=== PATIENT | female | born 2000 | race Caucasian/White ===

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

== ENCOUNTER 2022-08-06 11:29 | Emergency (ER) | payer BC ==
[2022-08-06 11:59] VITALS: RESP 18
[2022-08-06 12:59] VITALS: TEMP 98.6
--- NOTE | 2022-08-06 13:10 | ED ---
General Adult HPI - General Chief complaint: Chest Pain Stated complaint: SOB, chest pain Time Seen by Provider: 08/06/22 12:10 Source: patient, RN notes reviewed, old records reviewed Mode of arrival: ambulatory Limitations: no limitations - History of Present Illness Initial comments: This is a 21-year-old female presents emergency department stating while she was at work at [employer] she started having some chest tightness and felt like she couldn't take a deep breath. Patient states she has some sharp chest pain up front that lasted 3-4 seconds and it happened a few times. Patient states then she started feeling as though her heart was racing and she was a little bit anxious at that time. Patient states her heart rate is about 140 beats minute per patient states currently there is no heart racing now there is no chest pain now and she does still feel a chest ache deep breath. Patient states the chest pain is reproducible when she presses both sides of her chest. Patient denies any fever chills states she has a dry cough. Patient denies any abdominal pain patient's nausea vomiting diarrhea. - Related Data Previous Rx's Medication Instructions Recorded diphenhydrAMINE [Benadryl] 1 - 2 tab PO Q6HR PRN #30 capsule 02/08/18 methylPREDNISolone Dose Pack 4 mg PO DIRECTED #21 package 02/08/18 [Medrol Dose Pack] Allergies Allergy/AdvReac Type Severity Reaction Status Date / Time No Known Allergies Allergy Verified 08/06/22 11:59 Review of Systems ROS Statement: Those systems with pertinent positive or pertinent negative responses have been documented in the HPI. ROS Other: All systems not noted in ROS Statement are negative. Past Medical History Past Medical History: No Reported History History of Any Multi-Drug Resistant Organisms: None Reported Additional Past Surgical History / Comment(s): lymph node removed from neck Past Psychological History: No Psychological Hx Reported Smoking Status: Never smoker Past Alcohol Use History: None Reported Past Drug Use History: Marijuana General Exam - General Exam Comments Initial Comments: GENERAL: Patient is well-developed and well-nourished. Patient is nontoxic and well- hydrated and is in mild distress. ENT: Neck is soft and supple. No significant lymphadenopathy is noted. Oropharynx is clear. Moist mucous membranes. Neck has full range of motion without eliciting any pain. EYES: The sclera were anicteric and conjunctiva were pink and moist. Extraocular movements were intact and pupils were equal round and reactive to light. Eyelids were unremarkable. PULMONARY: Unlabored respirations. Good breath sounds bilaterally. No audible rales rhonchi or wheezing was noted. CARDIOVASCULAR: There is a regular rate and rhythm without any murmurs gallops or rubs. Chest pain was reproducible on the right and left side. ABDOMEN: Soft and nontender with normal bowel sounds. SKIN: Skin is clear with no lesions or rashes and otherwise unremarkable. NEUROLOGIC: Patient is alert and oriented x3. Cranial nerves II through XII are grossly intact. Motor and sensory are also intact. Normal speech, volume and content. Symmetrical smile. MUSCULOSKELETAL: Normal extremities with adequate strength and full range of motion. LYMPHATICS: No significant lymphadenopathy is noted PSYCHIATRIC: Normal psychiatric evaluation. Limitations: no limitations Course Vital Signs 08/06/22 08/06/22 11:57 12:59 Temperature 97.8 F 98.6 F Pulse Rate 83 89 Respiratory 18 18 Rate Blood Pressure 128/92 127/89 O2 Sat by Pulse 99 97 Oximetry Medical Decision Making - Medical Decision Making Was pt. sent in by a medical professional or institution (, PA, SENIOR PROCESS ANALYST, urgent care, hospital, or correction...) When possible be specific @ -No Did you speak to anyone other than the patient for history (EMS, parent, family, police, friend...)? What history was obtained from this source @ -No Did you review nursing and triage notes (agree or disagree)? Why? @ -I reviewed and agree with nursing and triage notes Were old charts reviewed (outside hosp., previous admission, EMS record, old EKG, old radiological studies, urgent care reports/EKG's, correction records)? Report findings @ -No old charts were reviewed Differential Diagnosis (chest pain, altered mental status, abdominal pain women, abdominal pain men, vaginal bleeding, weakness, fever, dyspnea, syncope, headache, dizziness, GI bleed, back pain, seizure, CVA, palpatations, mental health, musculoskeletal)? @ -Differential Dyspnea: Coronary syndrome, arrhythmia, tamponade, asthma, COPD, pulmonary embolism, pneumonia, pneumothorax, pulmonary effusion, anaphylaxis, diabetic ketoacidosis, flailed chest, pulmonary contusion, diaphragmatic rupture, anemia, neuromuscular, this is not meant to be an all-inclusive list. EKG interpreted by me (3pts min.). @ -EKG shows sinus rhythm at 71 bpm [place] interval 228 QRS 86 QT interval 338 QTC is 361. Patient's EKG shows no ST segment elevation or depression. X-rays interpreted by me (1pt min.). @ -Ray was interpreted by myself I see no acute abnormality CT interpreted by me (1pt min.). @ -None done U/S interpreted by me (1pt. min.). @ -None done What testing was considered but not performed or refused? (CT, X-rays, U/S, labs)? Why? @ -None What meds were considered but not given or refused? Why? @ -None Did you discuss the management of the patient with other professionals (professionals i.e. , PA, SENIOR PROCESS ANALYST, lab, RT, psych nurse, psychologist social, hand cloth cutter, teacher, commercial loan officer, case liner)? Give summary @ -No Was smoking cessation discussed for >3mins.? @ -No Was critical care preformed (if so, how long)? @ -No Were there social determinants of health that impacted care today? How? (Homelessness, low income, unemployed, alcoholism, drug addiction, transportation, low edu. Level, literacy, decrease access to med. care, residential, re hab)? @ -No Was there de-escalation of care discussed even if they declined (Discuss DNR or withdrawal of care, Hospice)? DNR status @ -No What co-morbidities impacted this encounter? (DM, HTN, Smoking, COPD, CAD, Cancer, CVA, ARF, Chemo, Hep., AIDS, mental health diagnosis, sleep apnea, morbid obesity)? @ -None Was patient admitted / discharged? Hospital course, mention meds given and route, prescriptions, significant lab abnormalities, going to OR and other pertinent info. @ -Patient's only experiencing some mild chest tightness at this time she's not having any issues speaking her oxygenation is good her vital signs are good at this time. Patient has no chest pain currently. Undiagnosed new problem with uncertain prognosis? @ -No Drug Therapy requiring intensive monitoring for toxicity (Heparin, Nitro, Insulin, Cardizem)? @ -No Were any procedures done? @ -No Diagnosis/symptom? @ -Palpitations Acute, or Chronic, or Acute on Chronic? @ -Acute Uncomplicated (without systemic symptoms) or Complicated (systemic symptoms)? @ -Uncomplicated Side effects of treatment? @ -No Exacerbation, Progression, or Severe Exacerbation? @ -No Poses a threat to life or bodily function? How? (Chest pain, [place], [place], pneumonia, PE, COPD, DKA, ARF, appy, cholecystitis, CVA, Diverticulitis, Homicidal, Suicidal, threat to staff... and all critical care pts) @ -No Disposition Clinical Impression: Palpitations Disposition: HOME SELF-CARE Condition: Good Instructions (If sedation given, give patient instructions): Heart Palpitations (ED) Additional Instructions: Follow-up with primary medical care doctor or cardiology for a heart monitor Is patient prescribed a controlled substance at d/c from ED?: No Referrals: Renzo Alcala DO [Primary Care Provider] - 1-2 days Time of Disposition: 13:12
--- NOTE | 2022-08-06 13:16 | XR ---
EXAMINATION TYPE: XR chest 2V DATE OF EXAM: 08/06/2022 COMPARISON: Chest x-ray 2003 HISTORY: Difficulty in breathing. TECHNIQUE: Frontal and lateral views of the chest are obtained. FINDINGS: There is no focal air space opacity, pleural effusion, or pneumothorax seen. The cardiac silhouette size is within normal limits. The osseous structures are intact. IMPRESSION: No acute process.
[2022-08-06 13:31] VITALS: BP 129/81; PULSE 87
== END 2022-08-06 13:31 | disposition home or self-care (01) ==
LOC: EC 11:29
DX: R00.2 Palpitations (principal); F12.90 Cannabis use, unspecified, uncomplicated
CPT/HCPCS: 71046; 93005; 99285

== ENCOUNTER 2022-10-17 11:32 | Emergency (ER) | payer BC ==
[2022-10-17 11:42] VITALS: RESP 18
[2022-10-17] MEDS ORDERED: KETOROLAC 15 MG/ML 1 ML VIAL IM STA (12:11)
--- NOTE | 2022-10-17 12:24 | ED ---
Lower Extremity Injury HPI - General Chief Complaint: Extremity Injury, Lower Stated Complaint: Right Knee Pain Time Seen by Provider: 10/17/22 11:50 Source: patient, RN notes reviewed Mode of arrival: ambulatory Limitations: no limitations - History of Present Illness Initial Comments: Patient is a pleasant 21-year-old female presenting to the emergency room with complaints of right knee pain and limited range of motion with difficulty ambulating. She reports that she stepped out of bed today and heard a popping sensation and since that time she has not been able to fully extend her leg and has severe pain with attempts of bearing weight. She denies any recent injury but does state approximately 2 months ago while dancing she tripped and fell landing on her right knee. She was not evaluated after that injury. She denies any point tenderness, swelling or wounds. She reports that the joint itself is not tender to the touch and only begins to hurt with range of motion. She denies any other complaints or concerns including any numbness, tingling or weakness. She has no significant past medical history. - Related Data Previous Rx's Medication Instructions Recorded diphenhydrAMINE [Benadryl] 1 - 2 tab PO Q6HR PRN #30 capsule 02/08/18 methylPREDNISolone Dose Pack 4 mg PO DIRECTED #21 package 02/08/18 [Medrol Dose Pack] Ibuprofen [Motrin] 800 mg PO Q8H PRN 7 Days #21 tab 10/17/22 Allergies Allergy/AdvReac Type Severity Reaction Status Date / Time No Known Allergies Allergy Verified 10/17/22 11:38 Review of Systems ROS Statement: Those systems with pertinent positive or pertinent negative responses have been documented in the HPI. ROS Other: All systems not noted in ROS Statement are negative. Past Medical History Past Medical History: No Reported History History of Any Multi-Drug Resistant Organisms: None Reported Additional Past Surgical History / Comment(s): lymph node removed from neck Past Psychological History: Anxiety Smoking Status: Never smoker Past Alcohol Use History: None Reported Past Drug Use History: Marijuana General Exam Limitations: no limitations General appearance: alert, in no apparent distress Head exam: Present: atraumatic, normocephalic, normal inspection Eye exam: Present: normal appearance, PERRL, EOMI. Absent: scleral icterus, conjunctival injection, periorbital swelling ENT exam: Present: normal exam, mucous membranes moist Neck exam: Present: normal inspection, full ROM Respiratory exam: Absent: respiratory distress, accessory muscle use Cardiovascular Exam: Present: regular rate GI/Abdominal exam: Present: soft. Absent: distended, tenderness, guarding, rebound, rigid Right Knee exam: Present: tenderness. Absent: full ROM, swelling, abrasion, lacerat ion, ecchymosis, deformity, crepitus, dislocation, erythema, effusion, full knee extension Neurovascular tendon exam: Present: no vascular compromise Gait: observed and limited by pain Back exam: Present: normal inspection Neurological exam: Present: alert, oriented X3, CN II-XII intact Psychiatric exam: Present: normal affect, normal mood Skin exam: Present: warm, dry, intact, normal color. Absent: rash Course Vital Signs 10/17/22 11:39 Temperature 98 F Pulse Rate 83 Respiratory 18 Rate Blood Pressure 124/78 O2 Sat by Pulse 97 Oximetry Medical Decision Making - Medical Decision Making Was pt. sent in by a medical professional or institution (, PA, CERTIFIED PERFORMANCE TECHNOLOGIST, urgent care, hospital, or halfway...) When possible be specific @ -No Did you speak to anyone other than the patient for history (EMS, parent, family, police, friend...)? What history was obtained from this source @ -No Did you review nursing and triage notes (agree or disagree)? Why? @ -I reviewed and agree with nursing and triage notes Were old charts reviewed (outside hosp., previous admission, EMS record, old EKG, old radiological studies, urgent care reports/EKG's, halfway records)? Report findings @ -No old charts were reviewed Differential Diagnosis (chest pain, altered mental status, abdominal pain women, abdominal pain men, vaginal bleeding, weakness, fever, dyspnea, syncope, headache, dizziness, GI bleed, back pain, seizure, CVA, palpatations, mental health, musculoskeletal)? @ -Differential Musculoskeletal Muscular strain, contusion, ligament sprain, fracture, arthritis, septic arthritis, bursitis, cellulitis, muscle spasm, nerve compression, DVT, arterial occlusion, herpes zoster, electrolyte abnormality, tumor.... This is not meant to be in all inclusive list EKG interpreted by me (3pts min.). @ -None done X-rays interpreted by me (1pt min.). @ -X-ray right knee: No fracture, dislocation or soft tissue swelling/effusion CT interpreted by me (1pt min.). @ -None done U/S interpreted by me (1pt. min.). @ -None done What testing was considered but not performed or refused? (CT, X-rays, U/S, labs)? Why? @ -None What meds were considered but not given or refused? Why? @ -None Did you discuss the management of the patient with other professionals (professionals i.e. DrNory, PA, CERTIFIED PERFORMANCE TECHNOLOGIST, lab, RT, psych nurse, bilingual social worker, pathology laboratory director, teacher, youth officer, director of casework)? Give summary @ -No Was smoking cessation discussed for >3mins.? @ -No Was critical care preformed (if so, how long)? @ -No Were there social determinants of health that impacted care today? How? (Homelessness, low income, unemployed, alcoholism, drug addiction, transportation, low edu. Level, literacy, decrease access to med. care, long term, rehab)? @ -No Was there de-escalation of care discussed even if they declined (Discuss DNR or withdrawal of care, Hospice)? DNR status @ -No What co-morbidities impacted this encounter? (DM, HTN, Smoking, COPD, CAD, Cancer, CVA, ARF, Chemo, Hep., AIDS, mental health diagnosis, sleep apnea, morbid obesity)? @ -None Was patient admitted / discharged? Hospital course, mention meds given and route, prescriptions, significant lab abnormalities, going to OR and other pertinent info. @ -Will give Toradol for pain and obtain x-ray of the right knee. No recent trauma however injury approximately 2 months ago with fall and pain to the patella with problems with range of motion and popping since that time. No examination after fall. X-ray negative for acute process. Pain improved with Toradol. Patient concerned regarding difficulty ambulating and with like assistive devices will provide with crutches and keep off work for 48 hours. Encouraged range of motion and weightbearing as tolerated. Will give ibuprofen for pain as needed advising not to take other NSAIDs with medication. Encouraged follow-up with orthopedist for further evaluation of right knee pain. Will discharge home in stable condition with crutches and prescription for ibuprofen to use for right knee pain as needed recommending follow-up with [facility]. Undiagnosed new problem with uncertain prognosis? @ -No Drug Therapy requiring intensive monitoring for toxicity (Heparin, Nitro, Insulin, Cardizem)? @ -No Were any procedures done? @ -No Diagnosis/symptom? @ -Right knee pain Acute, or Chronic, or Acute on Chronic? @ -Acute Uncomplicated (without systemic symptoms) or Complicated (systemic symptoms)? @ -Uncomplicated Side effects of treatment? @ -No Exacerbation, Progression, or Severe Exacerbation? @ -No Poses a threat to life or bodily function? How? (Chest pain, [place], [place], pneumonia, PE, COPD, DKA, ARF, appy, cholecystitis, CVA, Diverticulitis, Homicidal, Suicidal, threat to staff... and all critical care pts) @ -No Case discussed with Dr. Muller. - Radiology Data Radiology results: report reviewed, image reviewed Disposition Clinical Impression: Knee pain, right Disposition: HOME SELF-CARE Instructions (If sedation given, give patient instructions): Knee Pain (ED) Additional Instructions: Utilize Motrin for pain as needed, do not take other NSAIDs such as Aleve while taking Motrin. Ice joint in 20 minute increments as needed. Gentle range of motion encouraged. Weightbearing as tolerated encouraged. Please follow-up with orthopedist and your primary care provider. Please return to the Emergency Department if symptoms worsen or any other concerns. Prescriptions: Ibuprofen [Motrin] 800 mg PO Q8H PRN 7 Days #21 tab PRN Reason: Pain Is patient prescribed a controlled substance at d/c from ED?: No Referrals: Angelito James MD [Primary Care Provider] - 1-2 days Zack Marsh MD [Medical Doctor] - 1-2 days Time of Disposition: 13:23
--- NOTE | 2022-10-17 12:33 | XR ---
EXAMINATION TYPE: XR knee complete RT DATE OF EXAM: 10/17/2022 COMPARISON: Right knee radiograph 09/23/2015 HISTORY: Pain TECHNIQUE: Frontal, lateral and oblique images of the right knee are obtained. FINDINGS: There is no acute fracture/dislocation evident. The joint spaces appear within normal scales its. The overlying soft tissue appears unremarkable. Incidental fabella. IMPRESSION: There is no acute fracture or dislocation seen.
[2022-10-17 13:37] VITALS: BP 118/74; PULSE 78; TEMP 98.2
== END 2022-10-17 13:37 | disposition home or self-care (01) ==
LOC: EC 11:32
DX: M25.561 Pain in right knee (principal); F41.9 Anxiety disorder, unspecified; F12.90 Cannabis use, unspecified, uncomplicated; X50.9XXA Other and unspecified overexertion or strenuous movements or postures, initial encounter
CPT/HCPCS: 73562; 99283; 96372; J1885

== ENCOUNTER 2024-01-29 08:14 | Outpatient (CLI) | payer BC, OTHER ==
[2024-01-29] MEDS: LACTATED RINGERS 1,000 ML IV ONE (09:00)
[2024-01-29 09:11] LABS: Amorphous Sediment,Urine Moderate /hpf; Appearance,Urine Turbid (Clear); Bacteria,Urine Rare /hpf; Bilirubin,Urine Negative (Negative); Blood,Urine Negative (Negative); Color,Urine Colorless; Glucose,Urine (UA) Negative (Negative); Ketones,Urine Negative (Negative); Leukocyte Esterase,Urine Moderate (Negative); Mucus,Urine Rare /hpf; Nitrite,Urine Negative (Negative); PH, Urine 7.5 (5.0-8.0); Protein,Urine Trace (Negative); RBC,Urine 3 /hpf (0-5); Specific Gravity,Urine 1.019 (1.001-1.035); Squamous Epithelial Cell,Urine 63 /hpf (0-4); Urobilinogen,Urine <2.0 mg/dL (<2.0); WBC,Urine 5 /hpf (0-5)
[2024-01-29 09:23] LABS: Basophils % (A) 0 %; Eosinophils # (A) 0.1 k/uL (0-0.7); Eosinophils % (A) 2 %; HCT 35.9 % (34.0-46.0); HGB 12.4 gm/dL (11.4-16.0); Lymphocytes % (A) 15 %; MCH 31.2 pg (25.0-35.0); MCHC 34.5 g/dL (31.0-37.0); MCV 90.4 fL (80.0-100.0); Mean Platelet Volume 8.2; Monocytes # (A) 0.2 k/uL (0-1.0); Monocytes % (A) 4 %; Neutrophils # (A) 5.1 k/uL (1.3-7.7); Neutrophils % (A) 78 %; Platelet Count 277 k/uL (150-450); RBC 3.97 m/uL (3.80-5.40); RDW 12.2 % (11.5-15.5); WBC 6.5 k/uL (3.8-10.6)
[2024-01-29] MEDS: ACETAMINOPHEN IV (For NPO) 1,000 MG in EMPTY BAG 1 BAG IVPB STA (09:36)
[2024-01-29 09:55] LABS: African American GFR (CKD) >90 (>60 ml/min/1.73 sqM); Blood Urea Nitrogen 6 mg/dL (7-17); Non-African American GFR(CKD) >90 (>60 ml/min/1.73 sqM)
[2024-01-29 11:13] VITALS: BP 126/79; PULSE 102; RESP 17; TEMP 97.9
--- NOTE | 2024-02-08 18:59 | P.MSEPDOC ---
Presenting Problems - Arrival Data Date of Arrival on Unit: 01/29/24 Time of Arrival on Unit: 08:14 Mode of Transport: Ambulatory - Complaint OB-Reason for Admission/Chief Complaint: Pain Comment: pt arrived on the unit due to left sided constant pain that is now radiating into her right lower back as well, rates pain 09/22 Medical History - Information : 1 Para: 0 Term: 0 : 0 Abortions: Spontaneous or Elective: 0 Number of Living Children: 0 - Gestational Age Gestational Age by JESSIKA (wks/days): 21 Weeks and 4 Days Review of Systems - Review of Systems Constitutional: No problems Breast: No problems ENT: No problems Cardiovascular: No problems Respiratory: No problems Gastrointestinal: No problems Genitourinary: No problems Musculoskeletal: No problems Neurological: No problems Skin: No problems Vital Signs - Temperature Temperature: 97.9 F Temperature Source: Temporal Artery Scan - Pulse Right Brachial Pulse Rate: 102 Pulse Assessment Method: Automatic Cuff - Respirations Respiratory Rate: 17 Oxygen Delivery Method: Room Air O2 Sat by Pulse Oximetry: 98 - Blood Pressure Right Arm Blood Pressure: 126/79 Blood Pressure Mean: 94 Blood Pressure Source: Automatic Cuff Medical Screen Scoring - Uterine Contractions Resting: Soft to palpation - Assessment - Baby A Baseline FHR: 145-160 Heart Rate - NICHD Category: Category I (Normal) Physician Notification - Notification Comment Comment: dopplered fht's 145-160, positive movement and felt by pt and heard by RN, 1 liter of LR given and dose of ofirmev, labs drawn, pain improved after fluids and meds, increase oral fluids and take tylenol at home prn, orders to follow up in office at scheduled appt, Maternal Triage Index - Maternal Triage Index Presenting for scheduled procedure w/no complaint: No - Stat/Priority 1 Stat Priority 1: No - Urgent/Priority 2 Urgent Priority 2: Yes Provider Notified: Nadira Lamar Provider Notified Time: 08:40 Criteria Met for Priority 2: pt arrived on the unit due to left sided constant pain that is now radiating into her right lower back as well, rates pain 09/22 Disposition - Disposition OB Disposition: Triage, Discharge to home, Written follow up instructions review ed Discharge Date: 01/29/24 Discharge Time: 10:05 I agree with the RN Medical Screening Exam: Yes Case reviewed; plan agreed upon as documented in EMR&OBIX.: Yes Diagnosis: RELATED CONDITIONS, UNSPECIFIED, SECOND TRIMESTER
== END 2024-01-29 10:05 | disposition home or self-care (01) ==
LOC: FBPOP 08:14
PROVIDERS: ATTEND Obstetrics & Gynecology Obstetrics
DX: O26.92 Pregnancy related conditions, unspecified, second trimester (principal); R52 Pain, unspecified; Z3A.21 21 weeks gestation of pregnancy
CPT/HCPCS: 99214; 96361; 96365; 36415; 82565; 84520; 85025; 81001; J0131

== ENCOUNTER 2024-04-16 12:49 | Emergency (ER) | payer BC, OTHER ==
[2024-04-16 13:07] VITALS: RESP 20
[2024-04-16] MEDS: ACETAMINOPHEN TAB 500 MG TAB PO STA (13:10)
--- NOTE | 2024-04-16 13:11 | ED ---
URI HPI - General Chief Complaint: Upper Respiratory Infection Stated Complaint: Cough(33 weeks preg) Time Seen by Provider: 04/16/24 12:54 Source: patient, RN notes reviewed Mode of arrival: ambulatory Limitations: no limitations - History of Present Illness Initial Comments: This is a 23-year-old female who presents to the emergency department for coug jane and congestion. States that it started 2 days ago. Her cough is mildly productive. Patient has been around her significant other who is sick with similar symptoms. She is 33 weeks . Denies any vaginal bleeding or discharge. Reports feeling regular movement. She has tried taking jiec-clj-znqzaej Robitussin without any relief in symptoms. Denies any fevers or chills. MD Complaint: cough, nasal congestion - Related Data Home Medications Medication Instructions Recorded Confirmed Vit No.179/Iron/Folic 1 each PO DAILY 01/29/24 01/29/24 [ Tablet] Previous Rx's Medication Instructions Recorded Albuterol Sulfate [Albuterol 1 - 2 puff PO Q4-6H PRN #8.5 gm 04/16/24 Sulfate Hfa] Oseltamivir [Tamiflu] 75 mg PO Q12HR 5 Days #10 cap 04/16/24 Allergies Allergy/AdvReac Type Severity Reaction Status Date / Time No Known Allergies Allergy Verified 04/16/24 12:53 Review of Systems ROS Statement: Those systems with pertinent positive or pertinent negative responses have been documented in the HPI. ROS Other: All systems not noted in ROS Statement are negative. Past Medical History Past Medical History: No Reported History History of Any Multi-Drug Resistant Organisms: None Reported Additional Past Surgical History / Comment(s): lymph node removed from neck Past Psychological History: Anxiety Smoking Status: Current some day smoker General Exam Limitations: no limitations General appearance: alert, in no apparent distress Head exam: Present: atraumatic, normocephalic, normal inspection Respiratory exam: Present: normal lung sounds bilaterally. Absent: respiratory distress, wheezes, rales, rhonchi, stridor Cardiovascular Exam: Present: regular rate, normal rhythm, normal heart sounds. Absent: systolic murmur, diastolic murmur, rubs, gallop, clicks Neurological exam: Present: alert, oriented X3, CN II-XII intact Psychiatric exam: Present: normal affect, normal mood Skin exam: Present: warm, dry, intact, normal color. Absent: rash Course Vital Signs 04/16/24 04/16/24 04/16/24 12:51 12:57 15:26 Temperature 98.2 F 98.0 F Pulse Rate 104 H 99 Respiratory 22 20 20 Rate Blood Pressure 143/92 136/90 O2 Sat by Pulse 98 100 Oximetry Medical Decision Making - Medical Decision Making This is a 23-year-old female who presents to the emergency department for coughing and congestion. Was pt. sent in by a medical professional or institution? @ -No Did you speak to anyone other than the patient for history? @ -No Did you review nursing and triage notes? @ -Yes, and I agree, it is accurate with regards to the patient's symptoms. Were old charts reviewed? @ -No Differential Diagnosis? @ -Differential Cough: Influenza, Covid, RSV, croup, allergic rhinitis, GERD, pneumonia, bronchitis, COPD, viral pharyngitis, streptococcal pharyngitis, this is not meant to be an all-inclusive list. EKG interpreted by me (3pts min.)? @ -Not obtained X-rays interpreted by me (1pt min.)? @ -Chest x-ray obtained, my interpretation identifies no localized consolidations or infiltrates. CT interpreted by me (1pt min.)? @ -Not obtained U/S interpreted by me (1pt. min.)? @ -Not obtained What testing was considered but not performed? (CT, X-rays, U/S, labs)? Why? @ -None What meds were considered but not given? Why? @ -None Did you discuss the management of the patient with other professionals? @ -No Did you reconcile home meds? @ -No Was smoking cessation discussed for >3mins.? @ -No Was critical care preformed (if so, how long)? @ -No Were there social determinants of health that impacted care today? How? (Homelessness, low income, unemployed, alcoholism, drug addiction, transportation, low edu. Level, literacy, decrease access to med. care, fci, rehab)? @ -No Was there de-escalation of care discussed even if they declined? (Discuss DNR or withdrawal of care, Hospice)? @ -No What co-morbidities impacted this encounter? (DM, HTN, Smoking, COPD, CAD, Cancer, CVA, Hep., AIDS, mental health diagnosis, sleep apnea, morbid obesity)? @ - Was patient admitted / discharged? @ -Discharged. Patient positive for influenza A. COVID, RSV, and rapid strep test negative. While the patient is , she was agreeable to the one-time chest x-ray. This revealed no acute process. Current recommendations are to treat patients with Tamiflu. This was prescribed along with an albuterol inhaler. Advised tvta-mfo-ziijtgb cough medication that does not contain any alcohol or aspirin/NSAIDs. tones were obtained and found to be within normal limits from 128 to 145 bpm. 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 Patient discharged home in stable condition. Case discussed with ED attending Dr. Darden. Return precautions reviewed in depth, the patient is instructed to return to the emergency department with any new, worsening, or concerning symptoms. Patient verbalized understanding. Undiagnosed new problem with uncertain prognosis? @ -None Drug Therapy requiring intensive monitoring for toxicity (Heparin, Nitro, Insulin, Cardizem)? @ -None Were any procedures done? @ -None Diagnosis/symptom? @ -Influenza A Acute, or Chronic, or Acute on Chronic? @ -Acute Uncomplicated (without systemic symptoms) or Complicated (systemic symptoms)? @ -Uncomplicated Side effects of treatment? @ -None Exacerbation, Progression, or Severe Exacerbation] @ -Not applicable Poses a threat to life or bodily function? @ -No - Lab Data Lab Results 04/16/24 04/16/24 Range/Units 13:11 13:11 Influenza Type A (PCR) Detected A (Not Detectd) Influenza Type B (PCR) Not Detected (Not Detectd) RSV (PCR) Not Detected (Not Detectd) SARS-CoV-2 (PCR) Not Detected (Not Detectd) Group A Strep (PCR) NOT DETECTED (Not Detectd) - Radiology Data Radiology results: report reviewed, image reviewed Disposition Clinical Impression: Influenza A Disposition: HOME SELF-CARE Instructions (If sedation given, give patient instructions): Influenza (ED) Additional Instructions: Return to the emergency department with any new, worsening, or concerning symptoms. Take the Tamiflu as prescribed for 5 days. Use the albuterol inhaler every 4-6 hours as needed for shortness of breath. You can use xrmp-sri-rqymbad cough medication as long as it does not contain alcohol or anti-inflammatories. Take Tylenol as needed for pain relief. Prescriptions: Albuterol Sulfate [Albuterol Sulfate Hfa] 1 - 2 puff PO Q4-6H PRN #8.5 gm PRN Reason: Shortness Of Breath Oseltamivir [Tamiflu] 75 mg PO Q12HR 5 Days #10 cap Is patient prescribed a controlled substance at d/c from ED?: No Referrals: Anuel Rivero DO [Primary Care Provider] - 1-2 days Time of Disposition: 14:15
--- NOTE | 2024-04-16 13:30 | XR ---
EXAMINATION TYPE: XR chest 2V DATE OF EXAM: 04/16/2024 1:22 PM COMPARISON: Chest radiographs from 08/06/2022 TECHNIQUE: XR chest 2V Frontal and lateral views of the chest. CLINICAL INDICATION:Female, 23 years old with history of Cough; FINDINGS: Lungs/Pleura: There is no evidence of pleural effusion, focal consolidation, or pneumothorax. Pulmonary vascularity: Unremarkable. Heart/mediastinum: Cardiomediastinal silhouette is unremarkable. Musculoskeletal: No acute osseous pathology. IMPRESSION: No acute cardiopulmonary disease/process. [facility], , 04/16/2024 1:28 PM
[2024-04-16] MEDS: guaiFENesin-DM 600/30MG 1 EACH TAB.ER.12H PO STA (13:39)
[2024-04-16 14:03] LABS: Influenza A Detected (Not Detectd); Influenza B Not Detected (Not Detectd); RSV Not Detected (Not Detectd)
[2024-04-16 15:27] VITALS: BP 136/90; PULSE 99; TEMP 98
== END 2024-04-16 15:27 | disposition home or self-care (01) ==
LOC: EC 12:49
DX: O99.513 Diseases of the respiratory system complicating pregnancy, third trimester (principal); J10.1 Influenza due to other identified influenza virus with other respiratory manifestations; O99.333 Smoking (tobacco) complicating pregnancy, third trimester; F17.200 Nicotine dependence, unspecified, uncomplicated; Z3A.33 33 weeks gestation of pregnancy
CPT/HCPCS: 71046; 87636; 87651; 99283

== ENCOUNTER 2024-06-06 10:59 | Inpatient (IN) | payer BC, OTHER ==
[2024-06-06] MEDS ORDERED: miSOPROStoL 200 MCG TAB RECTAL PRN (12:06)
[2024-06-06] MEDS ORDERED: LIDOCAINE 0.5% (PF) 5 MG/ML (50 ML SDV) SQ PRN (12:06)
[2024-06-06] MEDS ORDERED: CARBOPROST TROMETHAMINE 250 MCG/ML 1 ML AMP IM PRN (12:06)
[2024-06-06] MEDS ORDERED: OXYTOCIN 10 UNIT/ML 1 ML VIAL IM PRN (12:06)
[2024-06-06] MEDS ORDERED: TRANEXAMIC 1,000 MG/100ML-NACL 1,000 MG in EMPTY BAG 1 BAG IV PRN (12:06)
[2024-06-06] MEDS ORDERED: METHYLERGONOVINE 0.2 MG/ML 1 ML AMP IM PRN (12:06)
[2024-06-06] MEDS ORDERED: TERBUTALINE 1 MG/ML VIAL SQ PRN (12:06)
[2024-06-06] MEDS ORDERED: miSOPROStoL 200 MCG TAB PO PRN (12:06)
[2024-06-06] MEDS: LACTATED RINGERS 1,000 ML IV SCH (12:40)
[2024-06-06 13:04] LABS: Basophils % (A) 0 %; Eosinophils # (A) 0.1 k/uL (0-0.7); Eosinophils % (A) 1 %; HCT 41.2 % (34.0-46.0); HGB 13.7 gm/dL (11.4-16.0); Lymphocytes # (A) 1.3 k/uL (1.0-4.8); Lymphocytes % (A) 13 %; MCH 29.3 pg (25.0-35.0); MCHC 33.3 g/dL (31.0-37.0); MCV 87.9 fL (80.0-100.0); Monocytes # (A) 0.4 k/uL (0-1.0); Monocytes % (A) 4 %; Neutrophils # (A) 7.8 k/uL (1.3-7.7); Neutrophils % (A) 80 %; Platelet Count 316 k/uL (150-450); RBC 4.69 m/uL (3.80-5.40); RDW 12.3 % (11.5-15.5); WBC 9.7 k/uL (3.8-10.6)
[2024-06-06] MEDS: OXYTOCIN 30 UNITS/500 ML NS 30 UNIT in SALINE 1 500ML.BAG IV SCH (13:38)
[2024-06-06] MEDS ORDERED: fentaNYL (PF) 50 MCG/ML 5 ML AMP ONE (15:45)
[2024-06-06] MEDS ORDERED: ROPIVACAINE 5 MG/ML 30 ML VIAL ONE (15:45)
[2024-06-06] MEDS ORDERED: SODIUM CHLORIDE 0.9% 250 ML BAG ONE (15:45)
[2024-06-06] MEDS: AMPICILLIN 2,000 MG in SODIUM CHLORIDE 0.9% 100 ML IVPB STA (19:23)
[2024-06-07] MEDS: AMPICILLIN 1,000 MG in SODIUM CHLORIDE 0.9% 50 ML IVPB SCH (00:03)
[2024-06-07] MEDS ORDERED: OXYTOCIN 10 UNIT/ML 1 ML VIAL ONE (02:30)
[2024-06-07] MEDS ORDERED: ONDANSETRON 4 MG/2 ML VIAL ONE (02:30)
[2024-06-07] MEDS ORDERED: fentaNYL (PF) 50 MCG/ML 2 ML AMP ONE (02:30)
[2024-06-07] MEDS ORDERED: MORPHINE SULFATE (PF) 0.3 MG/0.3 ML SYR ONE (02:30)
--- NOTE | 2024-06-07 03:28 | P.HPOB ---
History of Present Illness H&P Date: 06/06/24 Chief Complaint: Term , spontaneous rupture of membranes This is a 23-year-old 1 para 0 at 40-0/7 weeks that presents to labor and delivery with complaints of spontaneous rupture of membranes. Patient states she noted a large gush around 7 AM. clear in nature. She has been receiving routine care with myself. Patient states she notes good movement and occasional contractions. On labs she has a bloodtype of O+, rubella status immune, hepatitis B surface engine negative, HIV negative, RPR nonreactive, grew beta strep cultures negative Review of Systems Constitutional: Denies chills, Denies fatigue, Denies fever Ears, nose, mouth and throat: Denies headache Cardiovascular: Reports leg edema Respiratory: Denies dyspnea Gastrointestinal: Denies constipation, Denies diarrhea, Denies nausea, Denies vomiting Genitourinary: Reports Past Medical History Past Medical History: No Reported History History of Any Multi-Drug Resistant Organisms: None Reported Additional Past Surgical History / Comment(s): lymph node removed from neck Past Anesthesia/Blood Transfusion Reactions: No Reported Reaction Past Psychological History: Anxiety Smoking Status: Current some day smoker Past Alcohol Use History: None Reported Past Drug Use History: Marijuana - Past Family History Father Family Medical History: Dialysis Medications and Allergies Home Medications Medication Instructions Recorded Confirmed Type Vit No.179/Iron/Folic 1 each PO DAILY 01/29/24 06/06/24 History [ Tablet] Allergies Allergy/AdvReac Type Severity Reaction Status Date / Time adhesive tape Allergy Rash/Hives Verified 06/06/24 12:04 Exam Osteopathic Statement: *. No significant issues noted on an osteopathic structural exam other than those noted in the History and Physical/Consult. Vital Signs Temp Pulse Resp BP Pulse Ox 06/06/24 11:50 98.1 F 88 16 137/83 97 Intake and Output 06/06/24 06/06/24 06/06/24 06:59 14:59 22:59 Other: # Voids 1 Weight 86.183 kg Targeted physical exam is performed on this date in general this a well- nourished well-developed female in no acute distress, breathing is nonlabored, abdomen is gravid, cervical exam is noted to be 1-2/70/-3 grossly ruptured, upon exam in OB triage. heart tones noted to be category 1 and she is shria irregularly. Results Result Diagrams: 06/06/24 12:40 Abnormal Lab Results - Last 24 Hours (Table) 06/06/24 Range/Units 12:40 Neutrophils # 7.8 H (1.3-7.7) k/uL Assessment and Plan (1) Term Current Visit: Yes Status: Acute Code(s): Z34.90 - ENCNTR FOR SUPRVSN OF NORMAL , UNSP, UNSP TRIMESTER SNOMED Code(s): 79046929 (2) Spontaneous rupture of membranes Current Visit: Yes Status: Acute Code(s): NEY2510 - SNOMED Code(s): 331199927 Plan: Admit to labor and delivery Clear liquids as tolerated Pitocin augmentation of labor as indicated Options for analgesia are discussed including nitrous, Nubain, epidural. Patient will consider.
--- NOTE | 2024-06-07 03:28 | P.OP ---
Date of Procedure: 06/07/24 Preoperative Diagnosis: IUP at 40 and 1 sevenths weeks, spontaneous rupture of membranes, arrest of descent Postoperative Diagnosis: Same Procedure(s) Performed: Primary low-transverse section Anesthesia: epidural Surgeon: Nadira Lamar Mill[employer] Estimator #1: Norman Canseco Estimated Blood Loss (ml): 600 IV fluids (ml): 1,200 Urine output (ml): 100 (clear yellow) Pathology: none sent Condition: stable Disposition: observation Indications for Procedure: 23-year-old 1 para 0 at 40 and 1 sevenths weeks that presents to labor delivery with complaints of spontaneous rupture of membranes this morning. Patient stated the fluid was clear in nature. Patient was admitted to labor and delivery and Pitocin induction of labor was begun. Patient made slow progress cord complete eventually getting an epidural for analgesia. Patient progressed to complete and began pushing. After about an hour and a half of pushing infant remains at 0 station with increasing caput formation Operative Findings: Viable female delivered at 254, weight of 6 pounds 3 ounces, Apgars of 8 and 9 at 1 and 5 minutes respectively, terminal meconium was appreciated. Description of Procedure: The patient was prepped and draped in the usual fashion after epidural anesthesia was found to be adequate by the anesthesia department. A Pfannenstiel incision was made and extended of the abdominal cavity without difficulty. The bladder peritoneum was elevated and incised and reflected distally. A 2 cm incision was made in the transverse plane of the lower uterine segment to enter the uterus at which time clear fluid was noted. The incision was extended in both directions using the bandage scissors. The head was encountered within the field and delivered up and through the incision where the nose and mouth were thoroughly suctioned. Remainder of the infant was delivered onto the surgical field where the cord was doubly clamped, cut, and the was passed for resuscitative measures with weight and Apgars as noted above. The placenta was delivered manually, intact, and was grossly normal with a grossly normal three-vessel cord. The uterus was exteriorized and the interior cavity of the uterus swept of any remaining placental and membranous fragments with a laparotomy sponge. The margins of the incision were grasped with Allis clamps and the incision closed in 2 layers. Lateral extension was appreciated on the left lateral uterine side. Allis clamps were used to delineate the edges. First layer was a running locking layer of 0 Vicryl from margin to margin followed by a second layer of imbricating 0 Vicryl from margin to margin. Any small points of bleeding were then made hemostatic with the Bovie. Small amount of bleeding was appreciated on the lateral hysterotomy incision therefore a olsucm-jt-uybxo suture was used to obtain hemostasis. Once hemostasis was achieved, the posterior cul-de-sac was suctioned with a guard and the uterine and ovarian findings are as noted above. The uterus was replaced within the abdominal cavity and the gutters swept of any remaining blood fluid or clot. The incision was again reexamined and hemostasis was noted to be excellent. Any small point of bleeding were made hemostatic with the Bovie. Once hemostasis was achieved the parietal peritoneum was loosely reapproximated. The layer of muscles were examined and made hemostatic with the Bovie. Attention was then turned to the fascia which was closed with 2 running stitches of 0 Vicryl proceeding from the lateral margins to the midpoint. The subcutaneous tissues were irrigated, made hemostatic with the Bovie, and reapproximated with a running stitch of 30 Vicryl. The skin was reapproximated with 4-0 Vicryl. Est imated blood loss for the case was approximately 600 mL. All sponge instrument and needle counts are correct. There were no complications. The patient tolerated the procedure well and proceeded to the recovery room in stable condition. Both mother and are resting comfortably in recovery.
[2024-06-07] MEDS ORDERED: diphenhydrAMINE 50 MG CAP PO PRN (03:41)
[2024-06-07] MEDS ORDERED: diphenhydrAMINE 50 MG/ML 1 ML VIAL IVP PRN ×2 (03:41)
[2024-06-07] MEDS ORDERED: METOCLOPRAMIDE 5 MG/ML 2 ML VIAL IVP PRN (03:41)
[2024-06-07] MEDS ORDERED: ONDANSETRON 4 MG/2 ML VIAL IVP PRN (03:41)
[2024-06-07] MEDS ORDERED: diphenhydrAMINE 25 MG CAP PO PRN (03:41)
[2024-06-07] MEDS ORDERED: SIMETHICONE 80 MG CHEWABLE PO PRN (03:41)
[2024-06-07] MEDS ORDERED: ZOLPIDEM 5 MG TAB PO PRN (03:41)
[2024-06-07] MEDS ORDERED: NALOXONE 0.4 MG/ML 1 ML VIAL IV PRN (03:41)
[2024-06-07] MEDS: CITRIC ACID-SODIUM CITRATE 15 ML CUP PO ONE ×2 (03:42→20:59)
[2024-06-07] MEDS: ACETAMINOPHEN IV (For NPO) 1,000 MG in EMPTY BAG 1 BAG IVPB ONE (04:18)
[2024-06-07] MEDS: LACTATED RINGERS 1,000 ML IV SCH (04:19)
[2024-06-07] MEDS: IBUPROFEN 800 MG TAB PO SCH (06:06)
--- NOTE | 2024-06-07 07:47 | P.PN ---
Progress Note - Text Adequate analgesia. No anesthetic complication.
[2024-06-07] MEDS: IBUPROFEN IV 800 MG in SODIUM CHLORIDE 0.9% 250 ML IV ONE (08:13)
[2024-06-07] MEDS: SENNOSIDES-DOCUSATE SODIUM 1 EACH TAB PO SCH (08:16)
[2024-06-07] MEDS: ACETAMINOPHEN TAB 500 MG TAB PO SCH (12:23)
[2024-06-07] MEDS: PRENATAL VIT-IRON-FOLIC ACID 1 EACH TABLET PO SCH (20:57)
[2024-06-08] MEDS: ACETAMINOPHEN TAB 500 MG TAB PO SCH (04:14)
[2024-06-08 06:04] LABS: Basophils % (A) 0 %; Eosinophils # (A) 0.1 k/uL (0-0.7); Eosinophils % (A) 1 %; HCT 31.7 % (34.0-46.0); Lymphocytes % (A) 16 %; MCHC 32.6 g/dL (31.0-37.0); MCV 91.9 fL (80.0-100.0); Mean Platelet Volume 7.5; Monocytes # (A) 0.5 k/uL (0-1.0); Monocytes % (A) 4 %; Neutrophils # (A) 9.4 k/uL (1.3-7.7); Neutrophils % (A) 77 %; Platelet Count 304 k/uL (150-450); RBC 3.44 m/uL (3.80-5.40); RDW 12.8 % (11.5-15.5); WBC 12.3 k/uL (3.8-10.6)
[2024-06-08 06:53] LABS: HGB 10.3 gm/dL (11.4-16.0)
--- NOTE | 2024-06-08 16:19 | P.PNOBGPC ---
Subjective - Subjective Principal diagnosis: Postop day 1, section Interval history: Patient is doing well. She is ambulating and voiding without difficulty. She is tolerating her vomiting. Pain is well-controlled. Patient reports: Reports appetite normal, Reports voiding normally, Reports pain well controlled, Reports ambulating normally : doing well Objective - Vital Signs Latest vital signs: Vital Signs Temp Pulse Resp BP Pulse Ox 06/08/24 08:00 97.3 F L 91 18 117/75 98 06/08/24 00:10 97.8 F 97 17 128/77 98 Intake and Output 06/08/24 06/08/24 06/08/24 06:59 14:59 22:59 Other: # Voids 1 1 - Exam Extremities: Present: normal Abdomen: Present: normal appearance, soft Incision: Present: normal, dry, intact Uterus: Present: normal, firm - Labs Labs: Abnormal Lab Results - Last 24 Hours (Table) 06/08/24 Range/Units 05:42 WBC 12.3 H (3.8-10.6) k/uL RBC 3.44 L (3.80-5.40) m/uL Hgb 10.3 L D (11.4-16.0) gm/dL Hct 31.7 L (34.0-46.0) % Neutrophils # 9.4 H (1.3-7.7) k/uL Assessment and Plan (1) Term Current Visit: Yes Status: Acute Code(s): Z34.90 - ENCNTR FOR SUPRVSN OF NORMAL , UNSP, UNSP TRIMESTER SNOMED Code(s): 91047726 (2) Spontaneous rupture of membranes Current Visit: Yes Status: Acute Code(s): HPC0955 - SNOMED Code(s): 651907678 (3) Status post section Current Visit: Yes Status: Acute Code(s): Z98.891 - HISTORY OF UTERINE SCAR FROM PREVIOUS SURGERY SNOMED Code(s): 758392171 (4) Arrest of descent, delivered, current hospitalization Current Visit: Yes Status: Acute Code(s): O62.1 - SECONDARY UTERINE INERTIA SNOMED Code(s): 40712308 Plan: Doing well postoperatively. Plan to continue routine postoperative care Plan discharge home tomorrow
[2024-06-09 07:55] VITALS: BP 113/70; PULSE 79; RESP 16; TEMP 98.2
--- NOTE | 2024-06-09 08:53 | P.DS ---
Providers Date of admission: 06/06/24 12:02 Expected date of discharge: 06/09/24 Attending physician: Nadira Lamar Primary care physician: Stated None - Discharge Diagnosis(es) (1) Term Current Visit: Yes Status: Acute (2) Spontaneous rupture of membranes Current Visit: Yes Status: Acute (3) Status post section Current Visit: Yes Status: Acute (4) Arrest of descent, delivered, current hospitalization Current Visit: Yes Status: Acute Hospital Course: This is a 23-year-old 1 now para 1 that presented to labor and delivery on 06/07 for spontaneous rupture of membranes. For full details and the patient please see the dictated history and physical. Patient was admitted to labor and delivery ampicillin was begun secondary to prolonged rupture of membranes. Patient made slow progress to labor eventually becoming uncomfortable and requesting an epidural. Patient did progressed to complete dilation at 00 37, patient began pushing. Patient made no descent past 0 station. Patient was counseled on exam given options to continue pushing versus proceed with primary section after 2 hours of pushing. Patient elected primary . Patient was taken back to the operating room where viable female infant was delivered at 254, weight of 6 pounds 3 ounces, Apgars of 8 and 9 at 1 and 5 minutes respectively. For full details on the please see the dictated operative report. Patient's postoperative course has been uneventful. In this postoperative day #2 she is ambulating and voiding without difficulty. She is tolerating a regular diet without nausea or vomiting. She is breast and bottlefeeding at this point. She states her lochia is minimal. She would like discharge home if the infant is discharged along with her. Patient Condition at Discharge: Good Plan - Discharge Summary New Discharge Prescriptions: No Action Vit No.179/Iron/Folic [ Tablet] 1 each PO DAILY Discharge Medication List Vit No.179/Iron/Folic [ Tablet] 1 each PO DAILY 01/29/24 [History] Follow up Appointment(s)/Referral(s): Nadira Lamar DO [Doctor of Osteopathic Medicine] - 06/21/24 11:15 am (Post Appointment 07-19-2024 at 1:00pm) Patient Instructions/Handouts: (DC), (GEN) Activity/Diet/Wound Care/Special Instructions: No tub baths or intercourse until 6 weeks . Rfyi-qcw-pclyfow ibuprofen 600 mg or 3 tablets every 6 hours as needed for pain. Routine postoperative check at 2 weeks. Should she have any concerns prior to his appointment she is urged to call the office. Discharge Disposition: HOME SELF-CARE
== END 2024-06-09 12:30 | disposition home or self-care (01) | DRG 788 ==
LOC: FBPOP 10:59 → 4FBP 12:02
PROVIDERS: ADMIT Obstetrics & Gynecology Obstetrics; ATTEND Obstetrics & Gynecology Obstetrics
PROC: 3E033VJ Introduction of Other Hormone into Peripheral Vein, Percutaneous Approach (ICD-10-PCS; 2024-06-07)
PROC: 10D00Z1 Extraction of Products of Conception, Low, Open Approach (ICD-10-PCS; principal; 2024-06-07 02:54)
DX: O42.92 Full-term premature rupture of membranes, unspecified as to length of time between rupture and onset of labor (principal); F17.210 Nicotine dependence, cigarettes, uncomplicated; O48.0 Post-term pregnancy; O99.334 Smoking (tobacco) complicating childbirth; O77.0 Labor and delivery complicated by meconium in amniotic fluid; O62.1 Secondary uterine inertia; Z37.0 Single live birth; Z3A.40 40 weeks gestation of pregnancy
CPT/HCPCS: 85025; 86850; 86900; 86901